=== PATIENT | male | born 1995 | race Hispanic/Latino ===

== ENCOUNTER 2017-02-16 00:11 | Emergency (ER) | payer OTHER ==
[~2017-02-16] VITALS: Ht 180.3 cm; Wt 79.5 kg
[2017-02-16 00:33] VITALS: BP 144/90
[2017-02-16] MEDS ORDERED: IPRATROPIUM 0.5MG/ALBUTEROL 2.5MG INH SOL UD 3ML (DUONEB)(J7620) NEB ONE (01:15)
[2017-02-16] MEDS ORDERED: predniSONE 20 MG TAB PO ONE (01:15)
[2017-02-16] MEDS ORDERED: KETOROLAC 60 MG/2 ML VIAL (J1885) IM ONE (01:15)
[2017-02-16] MEDS ORDERED: KETOROLAC 30 MG/ML VIAL (J1885) As Ordered ONE (01:59)
[2017-02-16] MEDS ORDERED: PRED20TA PO (03:33)
[2017-02-16] MEDS ORDERED: ALBUTEROL 90 MCG/ACT 8GM HFA INHALER INH ONE (03:45)
--- NOTE | 2017-02-16 14:48 | REP ---
CHEST, TWO VIEWS: There is no evidence of acute infiltrate. No pleural effusion is seen. The heart is normal in size. The mediastinal silhouette is unremarkable. The visualized osseous structures are intact. IMPRESSION: No acute pulmonary disease. Signed by Cole Rousseau MD 02/16/2017 03:23 P
== END 2017-02-16 03:53 | disposition home or self-care (01) ==
LOC: M ED 00:11
DX: J20.9 Acute bronchitis, unspecified (principal); J45.909 Unspecified asthma, uncomplicated
CPT/HCPCS: 71020; 94640; 94664; 96372; 99282; J1885